=== PATIENT | male | born 1990 | race Caucasian/White ===

== ENCOUNTER 2016-03-27 16:59 | Emergency (ER) ==
[2016-03-27 17:12] VITALS: BP 150/64; TEMP 98.1; BMI 29.0
--- NOTE | 2016-03-27 17:46 | ED.PDOC ---
General ED Provider: Dr. LATIA SUH Chief Complaint: Shoulder Pain/Injury Stated Complaint: shoulder pain left sided after moving furniture Time Seen by Physician: 17:00 Mode of Arrival: Walk-In Information Source: Patient Exam Limitations: No limitations Nursing and Triage Documentation Reviewed and Agree: Yes Musculoskeletal Complaint Exam - Shoulder Pain Complaint/Exam Mechanism of Injury: Reports: No known trauma Onset/Duration: chronic worse today Symptoms Are: Still present Initial Severity: Moderate Current Severity: Moderate Character: Reports: Aching Alleviating: Reports: Rest Aggravating: Reports: Movement, Lifting, Flexion, Extension, Internal rotation, External rotation, Abduction Associated Signs and Symptoms: Denies: Swelling, Redness, Bruising, Fever, Weakness, Numbness, Tingling Related History: Reports: Similar episode Non-Orthopedic Risk Factors: Reports: None DVT Risk Factors: Reports: None Septic Arthritis Risk Factors: Reports: None Related Surgical History: Reports: None Limited Range of Motion: Present: Abduction, Adduction, Flexion, Extension, Internal rotation, External rotation, Rotator cuff muscles, Rotator cuff insertion Review of Systems - Review Of Systems Constitutional: Reports: No symptoms Eyes: Reports: No symptoms Ears, Nose, Mouth, Throat: Reports: No symptoms Respiratory: Reports: No symptoms Cardiac: Reports: No symptoms GI: Reports: No symptoms : Reports: No symptoms Musculoskeletal: Reports: Joint pain (l shoulder ) Skin: Reports: No symptoms Neurological: Reports: No symptoms Endocrine: Reports: No symptoms Hematologic/Lymphatic: Reports: No symptoms All Other Systems: Reviewed and Negative Past Medical History - Past Medical History Previously Healthy: Yes Endocrine: Reports: None Cardiovascular: Reports: None Respiratory: Reports: None Hematological: Reports: None Gastrointestinal: Reports: None Genitourinary: Reports: None Neuro/Psych: Reports: None Musculoskeletal: Reports: None Cancer: Reports: None - Surgical History General Surgical History: Reports: None - Family History Family History: Reports: None - Social History Smoking Status: Never smoker Hx Substance Use: No Alcohol Screening: Occasionally Physical Exam - Physical Exam Appearance: Well-appearing, No pain distress, Well-nourished Eyes: HARRISON, EOMI, Conjunctiva clear ENT: Ears normal, Nose normal, Oropharynx normal Respiratory: Airway patent, Breath sounds clear, Breath sounds equal, Respirations nonlabored Cardiovascular: RRR, Pulses normal, No rub, No murmur GI/: Soft, Nontender, No masses, Bowel sounds normal, No Organomegaly Musculoskeletal: Limited ROM (l shoulder ) Skin: Warm, Dry, Normal color Neurological: Sensation intact, Motor intact, Reflexes intact, Cranial nerves intact, Alert, Oriented Psychiatric: Affect appropriate, Mood appropriate Critical Care Note - Critical Care Note Total Time (mins): 0 Course - Course Orders, Labs, Meds: Orders Category Date Time Status SHOULDER, LEFT MIN 2V Stat RADS 03/27/16 17:12 Taken Vital Signs: Temp Pulse Resp BP Pulse Ox 03/27/16 17:01 98.1 F 65 20 150/64 H 96 Departure - Departure Time of Disposition: 17:45 Disposition: HOME SELF-CARE Discharge Problem: Shoulder pain Sprain of rotator cuff capsule Qualifiers: Encounter type: initial encounter Laterality: left Qualifier Code: (S43.422A) Sprain of left rotator cuff capsule, initial encounter Instructions: Arthralgia (ED), Shoulder Sprain (ED), Rotator Cuff Injury (ED) Condition: Good Pt referred to PMD for follow-up: No Additional Instructions: Please call your Family Physician as soon as possible to schedule a follow-up appointment. Allergies/Adverse Reactions: Allergies No Known Allergies Allergy (Unverified 03/27/16 17:09) Home Medications: Ambulatory Orders 1 [No Reported Medications] 03/27/16
--- NOTE | 2016-03-28 06:59 | DI ---
EXAM: Three views of the left shoulder HISTORY: Left shoulder pain. COMPARISON: None FINDINGS: There is no lytic or blastic lesion of the left shoulder. The acromioclavicular joint and glenohumeral joint are intact. The adjacent osseous structures and soft tissues are normal. IMPRESSION: No acute abnormality or displaced fracture of the left shoulder.
== END 2016-03-27 18:10 | disposition home or self-care (01) ==
LOC: ED 16:59
DX: S43.422A Sprain of left rotator cuff capsule, initial encounter (principal); X50.0XXA Overexertion from strenuous movement or load, initial encounter
CPT/HCPCS: 99282